=== PATIENT | male | born 1950 | race Caucasian/White ===

== ENCOUNTER → 2017-01-06 | Outpatient (CLI) | payer MEDICARE ==
[~2017-01-06] MED LIST: ASPIR-LOW81 MG PO; IMDUR30 MG PO; LASIX40 MG PO; LEVEMIR FL100 UNITS/ SC; LIPITOR40 MG PO; METOPROLOL SUCC25 MG PO; NITROSTAT0.4 MG SL; NOVOLOG100 UNIT/1 SC; PLAVIX75 MG PO
== END | disposition home or self-care (01) ==
LOC: CDC 14:32
DX: Z01.810 Encounter for preprocedural cardiovascular examination (principal); I44.0 Atrioventricular block, first degree; I44.4 Left anterior fascicular block; I45.10 Unspecified right bundle-branch block
CPT/HCPCS: 93000

== ENCOUNTER 2017-01-10 12:46 | Emergency (ER) | payer OTHER ==
[~2017-01-10] VITALS: Ht 175.3 cm; Wt 84.3 kg
[2017-01-10 13:55] LABS: POINT-OF-CARE METER ID UU13113702
[2017-01-10 14:48] LABS: BASOPHIL COUNT 0.1 K/uL (0-0.1); EOSINOPHIL (%) 4.4 % (0-5); EOSINOPHIL COUNT 0.3 K/uL (0-0.3); HEMATOCRIT 34.5 % (38.0-50.0); IMMATURE GRANULOCYTE (%) 0.4 % (0.0-0.7); LYMPHOCYTE COUNT 1.5 K/uL (1.0-2.8); MCH 32.5 PG (29.0-34.0); MCHC 34.2 G/DL (30.0-36.0); MONOCYTE (%) 7.1 % (3-12); MONOCYTE COUNT 0.5 K/uL (0-0.8); NEUTROPHIL (%) 67.5 % (45-76); PLATELET COUNT 199 K/uL (156-360); RBC DIS.WIDTH-CV 12.2 % (11.8-14.6); RBC DIS.WIDTH-SD 42.8 % (39-53); RED BLOOD COUNT 3.63 M/uL (4.00-5.50); WHITE BLOOD COUNT 7.5 K/uL (4.1-10.2)
[2017-01-10 14:53] LABS: PROTHROMBIN TIME 11.6 SEC (10.2-12.9)
[2017-01-10 14:57] LABS: CHLORIDE 106 mEq/L (99-109); POTASSIUM 3.8 mEq/L (3.7-5.4); SODIUM 141 mEq/L (136-147)
[2017-01-10 14:59] LABS: GLUCOSE 146 mg/dL (70-99)
[2017-01-10 15:01] LABS: ANION GAP 10 MEQ/L (2-14); TOTAL BILIRUBIN 0.3 mg/dL (0.0-1.0)
[2017-01-10 15:03] LABS: ALKALINE PHOSPHATASE 56 IU/L (3-129); GFR ESTIMATE (CALCULATED) 46 mL/min/
[2017-01-10 15:04] LABS: UREA NITROGEN (BUN) 36 mg/dL (9-23)
[2017-01-10 15:11] LABS: TROP-I INTERPRETATION NEGATIVE; TROPONIN-I 0.03 ng/mL (0.0-0.30)
[2017-01-10 15:18] VITALS: BP 157/70
== END 2017-01-10 15:20 | disposition left against medical advice (07) ==
LOC: EME → EDBD 12:46 → EME 15:20
PROVIDERS: Physician Assistant
DX: I25.119 Atherosclerotic heart disease of native coronary artery with unspecified angina pectoris (principal); I12.9 Hypertensive chronic kidney disease with stage 1 through stage 4 chronic kidney disease, or unspecified chronic kidney disease; E11.22 Type 2 diabetes mellitus with diabetic chronic kidney disease; N18.9 Chronic kidney disease, unspecified; Z79.4 Long term (current) use of insulin; I25.2 Old myocardial infarction; I45.10 Unspecified right bundle-branch block; E78.5 Hyperlipidemia, unspecified; Z95.1 Presence of aortocoronary bypass graft; Z79.02 Long term (current) use of antithrombotics/antiplatelets; Z79.82 Long term (current) use of aspirin; F17.200 Nicotine dependence, unspecified, uncomplicated; R45.1 Restlessness and agitation; Z53.29 Procedure and treatment not carried out because of patient's decision for other reasons
CPT/HCPCS: 71020; 80053; 81003; 82948; 83880; 84484; 85025; 85610; 93005; 99281; 99284